=== PATIENT | female | born 1995 | race Caucasian/White ===

== ENCOUNTER 2017-03-18 01:20 | Emergency (ER) | payer BC, OTHER ==
[~2017-03-18] VITALS: Ht 167.6 cm; Wt 55.0 kg
[2017-03-18 01:33] VITALS: TEMP 36.5; O2SAT 99; Ht 167.6 cm; Wt 55.0 kg
[2017-03-18 01:58] LABS: BUN/CREATININE RATIO 16.9 (10-20); CALCIUM 8.2 mg/dl (8.5-10.1); CREATININE 0.7 mg/dl (0.60-1.20); POTASSIUM 3.6 mmol/L (3.5-5.1)
[2017-03-18 04:43] LABS: BENZODIAZEPINE, URINE NEG (NEG); COCAINE,URINE NEG (NEG); PHENCYCLIDINE, URINE NEG (NEG)
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
[2017-03-18 05:19] VITALS: BP 121/83; PULSE 98; O2SAT 99
== END 2017-03-18 05:20 | disposition home or self-care (01) ==
LOC: EDBD 01:20 → C.EDB 01:23
DX: F10.920 Alcohol use, unspecified with intoxication, uncomplicated (principal); Z91.410 Personal history of adult physical and sexual abuse